=== PATIENT | female | born 1990 | race Caucasian/White ===

== ENCOUNTER → 2024-01-25 16:10 | Outpatient (REF) | payer BC, SELFPAY | LOC: PNTC 16:10 | PROVIDERS: ATTENDING PHYSICIAN Nurse Practitioner Family | DX: O36.80X0 Pregnancy with inconclusive fetal viability, not applicable or unspecified (principal) | CPT/HCPCS: 76801 ==

== ENCOUNTER → 2024-02-07 07:23 | Outpatient (REF) | payer BC, SELFPAY | LOC: PNTC 07:23 | PROVIDERS: ATTENDING PHYSICIAN Obstetrics & Gynecology | DX: O99.320 Drug use complicating pregnancy, unspecified trimester (principal) | CPT/HCPCS: 76801; 76813 ==

== ENCOUNTER → 2024-02-29 12:54 | Outpatient (REF) | payer BC, SELFPAY | LOC: RAD 12:54 | PROVIDERS: ATTENDING PHYSICIAN Obstetrics & Gynecology | DX: O26.859 Spotting complicating pregnancy, unspecified trimester (principal) | CPT/HCPCS: 76805 ==

== ENCOUNTER → 2024-03-30 15:11 | Outpatient (REF) | payer BC, SELFPAY | LOC: PNTC 15:11 | PROVIDERS: ATTENDING PHYSICIAN Obstetrics & Gynecology | DX: O99.320 Drug use complicating pregnancy, unspecified trimester (principal) | CPT/HCPCS: 76811 ==

== ENCOUNTER 2024-05-06 11:51 | Observation (INO) | payer BC, SELFPAY ==
[2024-05-06 12:03] VITALS: BP 107/62; BMI 30.2
[2024-05-06 12:26] LABS: Hemoglobin 10.9 g/dL (12.0-16.0); Mean Corp Hgb Conc. 34.1 g/dL (33.0-37.0); Mean Corpuscular Hgb 31.3 pg (27.0-31.0); Mean Platelet Volume 9.4 fL (7.4-10.4); Platelet Count 240 10^3/uL (130-400); Red Blood Cell Count 3.48 10^6/uL (4.20-5.40); Red Cell Dist. Width 13.1 % (11.5-14.5); White Blood Cell Count 10.2 10^3/uL (4.8-10.8)
[2024-05-06 14:38] LABS: Urine Albumin Negative (Neg - Trace); Urine Bilirubin Negative (Negative); Urine Character Clear (Clear); Urine Color Yellow; Urine Glucose Negative (Negative); Urine Ketone Negative (Negative); Urine Leukocyte Negative (Negative); Urine Nitrite Negative (Negative); Urine Occult Blood 4+ (Negative); Urine Specific Gravity 1.005 (<1.030); Urine Urobilinogen Negative (Neg - 1+)
[2024-05-06 15:14] LABS: Urine Red Blood Cell 0-2 /HPF (0-2); Urine White Cell 0-2 /HPF (0-5)
[2024-05-07] MEDS: PRENATAL PLUS 1 TABLET PO (08:11)
[2024-05-07] MEDS: PROZAC 20 MG PO (08:11)
== END 2024-05-07 09:00 | disposition home or self-care (01) ==
LOC: LDRP 11:51
PROVIDERS: ADMITTING PHYSICIAN Obstetrics & Gynecology
DX: O34.42 Maternal care for other abnormalities of cervix, second trimester (principal); O46.8X2 Other antepartum hemorrhage, second trimester; N84.1 Polyp of cervix uteri; Z3A.25 25 weeks gestation of pregnancy; M79.7 Fibromyalgia; O99.342 Other mental disorders complicating pregnancy, second trimester; F32.A Depression, unspecified; F42.9 Obsessive-compulsive disorder, unspecified; F41.9 Anxiety disorder, unspecified
CPT/HCPCS: 76815; 81003; 81015; 85027; 85460; 86850; 86900; 86901; 87086; G0378

== ENCOUNTER → 2024-05-30 14:49 | Outpatient (REF) | payer BC, OTHER, SELFPAY | LOC: PNTC 14:49 | PROVIDERS: ATTENDING PHYSICIAN Student in an Organized Health Care Education/Training Program | DX: Z29.13 Encounter for prophylactic Rho(D) immune globulin (principal) | CPT/HCPCS: 36415; 86850; 86900; 86901; 96372; J2790 ==

== ENCOUNTER 2024-08-18 02:44 | Inpatient (IN) | payer BC, SELFPAY ==
[2024-08-18 03:01] VITALS: BP 127/81; BMI 34.8
[2024-08-18 03:33] LABS: % Basophils 0.1 % (0-2); % Eosinophils 0.5 % (0-6); % Immature Granulocytes 0.5 % (0-0.5); % Lymphocytes 18.2 % (20.5-51.1); % Monocytes 7.4 % (1.7-9.3); % Neutrophils 73.3 % (42.2-75.2); Absolute Eosinophils 0.1 10^3/uL (0-0.7); Absolute Immature Granulocytes 0.1 10^3/uL (0-0.05); Absolute Lymphocytes 2.7 10^3/uL (1.2-3.4); Absolute Monocytes 1.1 10^3/uL (0.1-0.6); Absolute Neutrophils 10.7 10^3/uL (1.4-6.5); Hematocrit 31.7 % (37.0-47.0); Hemoglobin 10.6 g/dL (12.0-16.0); Mean Corp Hgb Conc. 33.4 g/dL (33.0-37.0); Mean Corpuscular Hgb 28.6 pg (27.0-31.0); Mean Corpuscular Volume 85.7 fL (81.0-99.0); Mean Platelet Volume 9.5 fL (7.4-10.4); Nucleated Red Blood Cells % 0 %; Platelet Count 253 10^3/uL (130-400); Red Cell Dist. Width 14.5 % (11.5-14.5); White Blood Cell Count 14.6 10^3/uL (4.8-10.8)
[2024-08-18] MEDS: SUBLIMAZE 100 MCG EPIDURAL (04:47)
[2024-08-18] MEDS: FENTANYL/BUPIVACAINE 100 EPIDURAL ×2 (04:50→13:14)
[2024-08-18] MEDS: LR 1000 IV ×2 (05:05→06:08)
[2024-08-18] MEDS: BICITRA 30 ML PO (15:51)
[2024-08-18] MEDS: ANCEF 10 IV (15:57)
[2024-08-18] MEDS: TYLENOL 1000 MG PO (15:57)
[2024-08-18] MEDS: ZITHROMAX INFUSION 250 IV (16:00)
[2024-08-18] MEDS: TORADOL 15 MG IV (21:55)
[2024-08-18] MEDS: TYLENOL 650 MG PO (21:56)
[2024-08-18] MEDS: PITOCIN 30 UNITS/NSS 500 ML IV (21:57)
[2024-08-19] MEDS: TORADOL 15 MG IV ×3 (04:00→19:09)
[2024-08-19] MEDS: TYLENOL 650 MG PO ×2 (04:00→20:42)
[2024-08-19 06:18] LABS: Hematocrit 27.4 % (37.0-47.0); Hemoglobin 9.2 g/dL (12.0-16.0); Mean Corp Hgb Conc. 33.6 g/dL (33.0-37.0); Mean Corpuscular Volume 86.4 fL (81.0-99.0); Mean Platelet Volume 9.6 fL (7.4-10.4); Platelet Count 246 10^3/uL (130-400); Red Blood Cell Count 3.17 10^6/uL (4.20-5.40); Red Cell Dist. Width 14.6 % (11.5-14.5); White Blood Cell Count 19.8 10^3/uL (4.8-10.8)
[2024-08-19] MEDS: PRENATAL PLUS 1 TABLET PO (09:02)
[2024-08-19] MEDS: PROZAC 20 MG PO (09:02)
--- NOTE | 2024-08-19 12:46 | W.PN.ANS.POP ---
Anesthesia Post Operative
- Anesthesia Post Op Note
Vital Signs Stable-See Nursing Note: Yes
Airway Patent: Yes
Adequate Pain Control: Yes
Change in Mental Status: No
Current Postoperative Nausea & Vomiting: No
Anesthesia Complications: No
General Anesthetic Recall: No
Unplanned Admission: No
Post Op Hydration Adequate: Yes
[2024-08-19] MEDS: RHOGAM 300 MCG IM (17:48)
[2024-08-19] MEDS: FEOSOL 325 MG PO (19:09)
[2024-08-20] MEDS: MOTRIN 600 MG PO ×4 (01:12→22:04)
[2024-08-20] MEDS: TYLENOL 650 MG PO ×4 (01:12→22:04)
[2024-08-20] MEDS: PROZAC 20 MG PO (08:36)
[2024-08-20] MEDS: SENOKOT-S 1 TABLET PO (08:36)
[2024-08-20] MEDS: PRENATAL PLUS 1 TABLET PO (08:36)
[2024-08-20] MEDS: FEOSOL 325 MG PO (08:37)
[2024-08-21] MEDS: MOTRIN 600 MG PO ×2 (04:22→11:32)
[2024-08-21] MEDS: TYLENOL 650 MG PO (04:23)
[2024-08-21] MEDS: PRENATAL PLUS 1 TABLET PO (08:27)
[2024-08-21] MEDS: SENOKOT-S 1 TABLET PO (08:28)
[2024-08-21] MEDS: FEOSOL 325 MG PO (08:28)
[2024-08-21] MEDS: PROZAC 20 MG PO (08:29)
[2024-08-21] MEDS: M-M-R II 0.5 ML SC (08:31)
--- NOTE | 2024-08-21 08:54 | W.DS.TRANS ---
DC Summary - Choir Accompanist
-
Discharge Instructions:
Discharge Diagnosis/Procedures primary cs
Instructions:
Stand-Alone Forms: LDRP Delivery
Changes to Home Medications: No
Discharge Medications:
DC Medications w/original date entered in [facility]
fluoxetine 20 mg capsule (Prozac) 20 mg PO DAILY Supplement 08/18/24
prenat.vits,meche,nru-qroq-xlenb 1 tab PO DAILY 08/18/24
ibuprofen 600 mg tablet 600 mg PO Q6HPRN PRN cramps #90 tabs 08/21/24
Home Medication Changes
Pending Results: No
Total time spent discharging patient (in min): 15
[2024-08-22 14:39] LABS: Syphilis/T. pallidum Ab Reflex Negative (Negative)
== END 2024-08-21 12:30 | disposition home or self-care (01) | DRG 788 ==
LOC: LDRP 02:44
PROVIDERS: Obstetrics & Gynecology; ADMITTING PHYSICIAN Obstetrics & Gynecology; ATTENDING PHYSICIAN Obstetrics & Gynecology
PROC: 10907ZC Drainage of Amniotic Fluid, Therapeutic from Products of Conception, Via Natural or Artificial Opening (ICD-10-PCS; 2024-08-18)
PROC: 10D00Z1 Extraction of Products of Conception, Low, Open Approach (ICD-10-PCS; 2024-08-18)
PROC: 3E0334Z Introduction of Serum, Toxoid and Vaccine into Peripheral Vein, Percutaneous Approach (ICD-10-PCS; 2024-08-19)
DX: O48.0 Post-term pregnancy (principal); Z3A.40 40 weeks gestation of pregnancy; O76 Abnormality in fetal heart rate and rhythm complicating labor and delivery; Z37.0 Single live birth; O26.893 Other specified pregnancy related conditions, third trimester; Z67.41 Type O blood, Rh negative
CPT/HCPCS: 88307; 36415; 85025; 85027; 85461; 86780; 86850; 86870; 86900; 86901; 90707; J2790